=== PATIENT | female | born 1975 | race Caucasian/White ===

== ENCOUNTER 2018-04-08 17:31 | Emergency (ER) | payer MEDICAID ==
[2018-04-08 17:49] VITALS: BP 101/75
--- NOTE | 2018-04-08 17:59 | ED Physician Documentation ---
PD HPI FEMALE - Stated complaint Stated Complaint: FEM - Chief complaint Chief Complaint: UTI - History obtained from History obtained from: Patient - History of Present Illness Timing - onset: Yesterday (Urinary frequency and dysuria since yesterday without flank pain, fevers or nausea. She also feels like she has had ingrown hair in her groin for about a week.) Review of Systems Constitutional: reports: Reviewed and negative Cardiac: reports: Reviewed and negative Respiratory: reports: Reviewed and negative PD PAST MEDICAL HISTORY - Present Medications Home Medications: Ambulatory Orders Medication Instructions Recorded Confirmed Cephalexin [Keflex] 500 mg PO Q6H #28 capsule 04/08/18 - Allergies Allergies/Adverse Reactions: Allergies Allergy/AdvReac Type Severity Reaction Status Date / Time No Known Drug Allergies Allergy Verified 04/08/18 17:48 PD ED PE NORMAL - Vitals Vital signs reviewed: Yes - General General: Alert and oriented X 3, No acute distress - Abdomen Abdomen: Soft, Non tender - 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 CLOUDY Urine pH 6.0 Ur Specific [place] >=1.030 H Urine Protein TRACE Urine Glucose (UA) NEGATIVE Urine Ketones NEGATIVE Urine Occult Blood SMALL H Urine Nitrite NEGATIVE Urine Bilirubin NEGATIVE Urine Urobilinogen 0.2 (NORMAL) Ur Leukocyte Esterase TRACE H Urine RBC 11-25 H Urine WBC 6-10 H Ur Squamous Epith Cells MANY Squamous H Urine Bacteria Many H Ur Microscopic Review INDICATED Urine Culture Comments NOT INDICATED Urine HCG, Qual NEGATIVE PD MEDICAL DECISION MAKING - Sepsis Event Vital Signs: Vital Signs - 24 hr 04/08/18 17:45 Temperature 36.6 C Heart Rate 63 Respiratory 16 Rate Blood Pressure 101/75 O2 Saturation 99 Oxygen O2 Source Room air Departure - Departure Disposition: 01 Home, Self Care Clinical Impression: Cystitis, Ingrown hair Condition: Good Record reviewed to determine appropriate education?: Yes Instructions: ED UTI Cystitis Female Prescriptions: Cephalexin [Keflex] 500 mg PO Q6H #28 capsule Comments: We will culture your urine, the results should be done in 48-72 hours. If an antibiotic change is necessary we will call you. Return if worse in the meantime, especially if you develop increasing flank pain, fevers, or cannot keep down the medication.
[2018-04-08 18:08] LABS: BILIRUBIN,URINE NEGATIVE (NEGATIVE); GLUCOSE, URINE (UA) NEGATIVE (NEGATIVE); KETONES,URINE (UA) NEGATIVE (NEGATIVE); LEUKOCYTE ESTERASE, URINE TRACE (NEGATIVE); NITRITE,URINE NEGATIVE (NEGATIVE); OCCULT BLOOD,URINE SMALL (NEGATIVE); PROTEIN,URINE TRACE mg/dL (NEGATIVE); UROBILINOGEN,URINE 0.2 (NORMAL) E.U./dL (NORMAL)
[2018-04-08 18:11] LABS: CLARITY,URINE SL. CLOUDY (CLEAR); HCG UR QUAL NEGATIVE
[2018-04-08 18:15] LABS: BACTERIA,URINE Many /HPF (None Seen); SQUAMOUS EPITHELIAL CELL,UR MANY Squamous (<= Few)
[2018-04-08] MEDS ORDERED: CEPHALEXIN 250 MG Prepack 8 PO ONE (18:15)
== END 2018-04-08 18:29 | disposition home or self-care (01) ==
LOC: ED 17:31
DX: N30.90 Cystitis, unspecified without hematuria (principal); L73.8 Other specified follicular disorders
CPT/HCPCS: 81001; 81003; 81025; 87086; 87181; 99283

== ENCOUNTER 2018-06-09 07:11 | Emergency (ER) | payer MEDICAID ==
[2018-06-09] MEDS ORDERED: SODIUM CHLORIDE 0.9% 1,000 ML IV ONE (07:37)
--- NOTE | 2018-06-09 07:47 | ED Physician Documentation ---
History of Present Illness - Stated complaint Stated Complaint: CP/NUMBNESS IN LT ARM - Chief complaint Chief Complaint: Cardiac - Additonal information Additional information: 42-year-old female presents the emergency department with numerous complaints. The patient reports epigastric/lower chest pain which has been ongoing for quite some time. The symptoms started after eating a spicy espinoza. The patient reports pain that radiates into her left arm. The patient reports head pain. The patient denies sudden onset. The headache is described as mild. No motor or sensory changes. No neck stiffness. No fevers or chills. Symptoms are described as moderate. No specific relieving factors. Review of Systems Constitutional: denies: Fever, Fatigue Eyes: denies: Loss of vision Ears: denies: Ear pain Nose: denies: Congestion Throat: denies: Sore throat Cardiac: reports: Chest pain / pressure Respiratory: denies: Cough GI: denies: Abdominal Pain : denies: Dysuria Skin: denies: Rash Musculoskeletal: denies: Back pain Neurologic: reports: Headache. denies: Generalized weakness, Numbness, Difficulty speaking, Near syncope Immunocompromised: denies: Chemotherapy PD PAST MEDICAL HISTORY - Past Medical History GI: GERD, Colon polyps, C.difficile, Hemorrhoids Psych: Panic attacks, Post traumatic stress disorder Other Past Medical History: PTSD with tonic immobility. - Past Surgical History Past Surgical History: No - Present Medications Home Medications: Ambulatory Orders Medication Instructions Recorded Confirmed No Known Home Medications 06/09/18 06/09/18 - Allergies Allergies/Adverse Reactions: Allergies Allergy/AdvReac Type Severity Reaction Status Date / Time No Known Drug Allergies Allergy Verified 06/09/18 07:24 - Social History Does the pt smoke?: No Smoking Status: Never smoker Does the pt drink ETOH?: No - Immunizations Immunizations are current?: Yes PD ED PE NORMAL - General General: Alert and oriented X 3, No acute distress - HEENT HEENT: Atraumatic, PERRL, EOMI, Ears normal, Moist mucous membranes - Neck Neck: Supple, no meningeal sign - Cardiac Cardiac: RRR, Strong equal pulses - Respiratory Respiratory: No respiratory distress, Clear bilaterally - Abdomen Abdomen: Soft, Non tender, Non distended - Derm Derm: Normal color - Extremities Extremities: No deformity, No edema - Neuro Neuro: Alert and oriented X 3, Normal speech - Psych Psych: Normal mood Results - Vitals Vitals: Vital Signs - 24 hr 06/09/18 06/09/18 06/09/18 07:19 09:18 11:28 Temperature 36.8 C 37.1 C Heart Rate 70 47 L 60 Respiratory 20 13 14 Rate Blood Pressure 145/72 H 108/67 107/62 O2 Saturation 100 100 99 Oxygen O2 Source Room air - EKG (time done) 07:24 Rate: Rate (enter#) Rhythm: NSR [place]: Normal Intervals: Normal [place] QRS: Normal Ischemia: Normal ST segments - Labs Labs: Laboratory Tests 06/09/18 06/09/18 06/09/18 08:10 08:10 08:10 WBC 6.3 RBC 4.40 Hgb 13.5 Hct 39.3 MCV 89.3 MCH 30.7 MCHC 34.4 RDW 14.4 Plt Count 221 MPV 9.0 Neut # (Auto) 3.9 Lymph # (Auto) 1.4 L [place] # (Auto) 0.8 Eos # (Auto) 0.2 Baso # (Auto) 0.0 Absolute Nucleated RBC 0.00 Nucleated RBC % 0.0 Sodium 135 Potassium 3.9 Chloride 105 Carbon Dioxide 25 Anion Gap 5.0 L BUN 19 Creatinine 0.6 Estimated GFR (MDRD) 110 Glucose 109 H Calcium 8.5 Total Bilirubin 0.8 AST 18 ALT 17 Alkaline Phosphatase 53 Troponin I < 0.04 Total Protein 7.3 Albumin 4.2 Globulin 3.1 Albumin/Globulin Ratio 1.4 Lipase 41 06/09/18 10:15 WBC RBC Hgb Hct MCV MCH MCHC RDW Plt Count MPV Neut # (Auto) Lymph # (Auto) [place] # (Auto) Eos # (Auto) Baso # (Auto) Absolute Nucleated RBC Nucleated RBC % Sodium Potassium Chloride Carbon Dioxide Anion Gap BUN Creatinine Estimated GFR (MDRD) Glucose Calcium Total Bilirubin AST ALT Alkaline Phosphatase Troponin I < 0.04 Total Protein Albumin Globulin Albumin/Globulin Ratio Lipase - Rads (name of study) CT head Radiology: Final report received CXR Radiology: Final report received PD MEDICAL DECISION MAKING - ED course ED course: On reevaluation the patient is resting comfortably, the patient's symptoms have been ongoing for a period of time and the patient's workup today does not reveal any significant abnormality that would necessitate admission to the hospital or acute consultation. Per the heart score the patient appears low risk for further workup as an outpatient. I discussed with her the findings and plan and she understands and agrees. I discussed warning signs and recommended returning to the emergency department immediately for worsening or any concerns. Departure - Departure Disposition: 01 Home, Self Care Clinical Impression: Chest pain, Headache Condition: Good Instructions: Headaches Self Care, Headache Pain, ED Chest Pain [facility] Follow-Up: Kaya Zheng ND [Primary Care Provider] - Tomorrow (Please have your primary care physician arrange for an outpatient stress test and e chocardiogram to further evaluate your symptoms today.) Comments: Please return to the emergency department for worsening symptoms or any concerns. Discharge Date/Time: 06/09/18 11:29
--- NOTE | 2018-06-09 08:04 | XRAY Report ---
Reason: CP Procedure Date: 06/09/2018 Accession Number: [id number] / [id number] Procedure: XR - Chest 2 View X-Ray CPT Code: 48220 FULL RESULT: EXAM: CHEST RADIOGRAPHY EXAM DATE: 06/09/2018 07:48 AM. CLINICAL HISTORY: CP. COMPARISON: None. TECHNIQUE: 2 views. FINDINGS: Lungs/Pleura: No focal opacities evident. No pleural effusion. No pneumothorax. Normal volumes. Mediastinum: Heart and mediastinal contours are unremarkable. Other: None. IMPRESSION: Normal 2-view chest radiography for age and body habitus. RADIA
[2018-06-09 08:21] LABS: BASOPHILS % (AUTO) 0.8 %; EOSINOPHILS # (AUTO) 0.2 10^3/uL (0.0-0.7); EOSINOPHILS % (AUTO) 2.6 %; HGB - HEMOGLOBIN 13.5 g/dL (12.0-16.0); LYMPHOCYTES # (AUTO) 1.4 10^3/uL (1.5-3.5); LYMPHOCYTES % (AUTO) 22.6 %; MEAN CORPUSCULAR HEMOGLOBIN 30.7 pg (27.0-31.0); MEAN CORPUSCULAR HGB CONC 34.4 g/dL (32.0-36.0); MEAN CORPUSCULAR VOLUME 89.3 fL (81.0-99.0); MONOCYTES # (AUTO) 0.8 10^3/uL (0.0-1.0); MONOCYTES % (AUTO) 12.3 %; NEUTROPHILS # (AUTO) 3.9 10^3/uL (1.5-6.6); NEUTROPHILS % (AUTO) 61.7 %; PLT - PLATELET COUNT 221 10^3/uL (130-450); RED CELL DISTRIBUTION WIDTH 14.4 % (12.0-15.0); WHITE BLOOD COUNT 6.3 x10^3/uL (4.8-10.8)
[2018-06-09 08:33] LABS: ALBUMIN 4.2 g/dL (3.2-5.5); ALBUMIN/GLOBULIN RATIO 1.4 (1.0-2.2); BILIRUBIN,TOTAL 0.8 mg/dL (0.2-1.0); CALCIUM 8.5 mg/dL (8.5-10.3); CREATININE 0.6 mg/dL (0.4-1.0); TOTAL PROTEIN 7.3 g/dL (6.7-8.2)
[2018-06-09] MEDS ORDERED: KETOROLAC 60 MG/2 ML VIAL IVP STA (09:05)
--- NOTE | 2018-06-09 09:15 | CT Report ---
Reason: headache Procedure Date: 06/09/2018 Accession Number: [id number] / [id number] Procedure: CT - Head W/O CPT Code: FULL RESULT: EXAM: CT HEAD EXAM DATE: 06/09/2018 08:53 AM. CLINICAL HISTORY: Headache. COMPARISON: None. TECHNIQUE: Multiaxial CT images were obtained from the foramen magnum to the vertex. Reformats: Sagittal and coronal. IV contrast: None. In accordance with CT protocol optimization, one or more of the following dose reduction techniques were utilized for this exam: automated exposure control, adjustment of mA and/or KV based on patient size, or use of iterative reconstructive technique. FINDINGS: Parenchyma: No intraparenchymal hemorrhage. No evidence of mass, midline shift, or CT findings of infarction. Monreal-white differentiation is distinct. Extraaxial Spaces: Normal for age. No subdural or epidural collections identified. Ventricles: Normal in size and position. Sinuses and Orbits: There is a mucus retention cyst in the superomedial aspect of the right maxillary sinus. There is a small amount of mucus in an anterior left ethmoid air cell. Visualized portions of the remaining paranasal sinuses and mastoid air cells are clear. Bones: No evidence of fracture or calvarial defect. Other: None. IMPRESSION: No acute intracranial abnormality. RADIA
[2018-06-09 11:29] VITALS: BP 107/62
== END 2018-06-09 11:29 | disposition home or self-care (01) ==
LOC: ED 07:11
DX: R07.9 Chest pain, unspecified (principal); R51 Headache
CPT/HCPCS: 36415; 70450; 71046; 80053; 83690; 84484; 85025; 93005; 96361; 96374; 99283; 99284

== ENCOUNTER 2018-06-20 08:34 | Emergency (ER) | payer MEDICAID ==
[2018-06-20 09:04] VITALS: BP 111/60
[2018-06-20] MEDS ORDERED: DEXAMETHASONE 10 MG/ML VIAL PO STA (09:23)
--- NOTE | 2018-06-20 09:26 | ED Physician Documentation ---
History of Present Illness - Stated complaint Stated Complaint: ALLERGIC REACTION - Chief complaint Chief Complaint: General - History obtained from History obtained from: Patient - History of Present Illness Timing: How many days ago (3) - Additonal information Additional information: 42-year-old female had her teeth removed last week for dentures and she was on some Tylenol with codeine as well as amoxicillin and she is developed a lot of swelling in her mouth and then developed a rash on her entire body of some very small spots. She has been taken off of the amoxicillin and codeine and she is on Benadryl and continues to have some itching and this generalized rash. She does not have any difficulty breathing she has not any swelling or throat. She has not had allergic reaction previously. Review of Systems Constitutional: denies: Fever, Chills Eyes: denies: Decreased vision Ears: denies: Ear pain Nose: denies: Rhinorrhea / runny nose, Congestion Throat: reports: Dental pain / toothache. denies: Sore throat Cardiac: denies: Chest pain / pressure, Palpitations Respiratory: denies: Dyspnea, Cough GI: denies: Abdominal Pain, Abdominal Swelling, Nausea, Vomiting : denies: Dysuria, Frequency Skin: reports: Rash Musculoskeletal: denies: Neck pain, Back pain, Extremity pain PD PAST MEDICAL HISTORY - Past Medical History Past Medical History: Yes GI: GERD, Colon polyps, C.difficile, Hemorrhoids Psych: Panic attacks, Post traumatic stress disorder - Past Surgical History Past Surgical History: No - Present Medications Home Medications: Ambulatory Orders Medication Instructions Recorded Confirmed No Known Home Medications 06/09/18 06/09/18 - Allergies Allergies/Adverse Reactions: Allergies Allergy/AdvReac Type Severity Reaction Status Date / Time No Known Drug Allergies Allergy Verified 06/20/18 09:04 - Social History Does the pt smoke?: No Smoking Status: Never smoker Does the pt drink ETOH?: No - Immunizations Immunizations are current?: Yes PD ED PE NORMAL - Vitals Vital signs reviewed: Yes (normal ) - General General: Alert and oriented X 3, No acute distress, Well developed/nourished - HEENT HEENT: Atraumatic, PERRL, EOMI, Ears normal, Moist mucous membranes, Pharynx benign, Other (There are fresh sutures to the upper gum) - Neck Neck: Supple, no meningeal sign, No bony TTP - Cardiac Cardiac: RRR, No murmur - Respiratory Respiratory: No respiratory distress, Clear bilaterally - Abdomen Abdomen: Soft, Non tender - Back Back: No CVA TTP, No spinal TTP - Derm Derm: Normal color, Warm and dry, Other (There are pin point erythematous plaques over the entire body. 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 She is administered a single dose of dexamethasone and I have asked her to take Benadryl 25-50 mg every 6 hours for the next 2 days. Departure - Departure Disposition: 01 Home, Self Care Clinical Impression: Drug rash Condition: Stable Instructions: ED Drug React Allergic Follow-Up: Kaya Zheng ND [Primary Care Provider] - Comments: Do not take the amoxicillin or the codine and continue to take Benadryl 25-50 mg every 6 hours for the next 2 days. Expect the rash to supriya over the next day.
== END 2018-06-20 09:37 | disposition home or self-care (01) ==
LOC: ED 08:34
DX: R22.9 Localized swelling, mass and lump, unspecified (principal); R21 Rash and other nonspecific skin eruption; T36.0X5A Adverse effect of penicillins, initial encounter; T40.2X5A Adverse effect of other opioids, initial encounter
CPT/HCPCS: 99282

== ENCOUNTER 2018-12-30 01:55 | Outpatient (CLI) | payer MEDICAID | END 2018-12-30 01:56 | disposition critical access hospital (66) | LOC: EMS 01:55 | PROVIDERS: ATTEND Surgery | DX: R07.9 Chest pain, unspecified (principal) | CPT/HCPCS: A0425; A0429; A0999 ==

== ENCOUNTER 2018-12-30 02:12 | Emergency (ER) | payer MEDICAID ==
[2018-12-30 02:23] VITALS: BP 115/66
--- NOTE | 2018-12-30 02:41 | ED Physician Documentation ---
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 Symptoms lasted approximately 10 minutes and have resolved by time of ED arrival. Review of Systems Cardiac: reports: Chest pain / pressure, Palpitations. denies: Pedal edema Respiratory: denies: Dyspnea Musculoskeletal: reports: Neck pain Neurologic: reports: Headache PD PAST MEDICAL HISTORY - Past Medical History Past Medical History: Yes GI: GERD, Colon polyps, C.difficile, Hemorrhoids Psych: Panic attacks, Post traumatic stress disorder - Past Surgical History Past Surgical History: No - Present Medications Home Medications: Ambulatory Orders Medication Instructions Recorded Confirmed No Known Home Medications 06/09/18 06/09/18 - Allergies Allergies/Adverse Reactions: Allergies Allergy/AdvReac Type Severity Reaction Status Date / Time No Known Drug Allergies Allergy Verified 06/20/18 09:04 - Social History Does the pt smoke?: No Smoking Status: Never smoker Does the pt drink ETOH?: No Does the pt have substance abuse?: No Substance Use and Type: Marijuana - Immunizations Immunizations are current?: Yes - POLST Patient has POLST: No PD ED PE NORMAL - Vitals Vital signs reviewed: Yes - General General: Alert and oriented X 3, No acute distress (NAD at rest; appears uncomfortable when she sits forward for lung exam (auscultation)), Well developed/nourished - HEENT HEENT: PERRL, EOMI - Neck Neck: Supple, no meningeal sign - Cardiac Cardiac: RRR, No murmur - Respiratory Respiratory: No respiratory distress, Clear bilaterally - Extremities Extremities: No edema Results - Vitals Vitals: Vital Signs - 24 hr 12/30/18 12/30/18 02:17 02:22 Temperature 36.6 C Heart Rate 58 L 58 L Respiratory 16 16 Rate Blood Pressure 115/66 115/66 O2 Saturation 99 99 Oxygen O2 Source Room air - EKG (time done) No standard instances Rate: Rate (enter#) (57) Rhythm: Sinus bradycardia [place]: Normal Intervals: Normal [place] QRS: Normal Ischemia: Normal ST segments PD MEDICAL DECISION MAKING - ED course Complexity details: reviewed old records, considered differential, d/w patient ED course: After H+P performed, I d/w patient EKG (no acute findings) and I recommended blood tests to further investigate her palpitations and chest discomfort. Patient asks if her "head swelling" (per patient) could be causing her chest discomfort and palpitations. In trying to inquire about her head and neck pain, patient tells me she had an MRI yesterday in [place]. She says she has PTSD and Lyme disease. She seems to be unhappy with me when I explain that I don't immediately suspect a link between her headache and her chest discomfort, and she abruptly decides she wants no blood tests and wants to leave the ED. Departure - Departure Disposition: Against Medical Advice Clinical Impression: Chest pain, Palpitations Condition: Stable Discharge Date/Time: 12/30/18 03:04
== END 2018-12-30 03:04 | disposition left against medical advice (07) ==
LOC: EDUNIT# → ED 02:12
DX: R07.9 Chest pain, unspecified (principal); R00.2 Palpitations
CPT/HCPCS: 93005; 99283

== ENCOUNTER 2019-12-22 11:00 | Outpatient (CLI) | payer MEDICAID | END 2019-12-22 11:01 | disposition critical access hospital (66) | LOC: EMS 11:00 | PROVIDERS: ATTEND Surgery | DX: R19.7 Diarrhea, unspecified (principal); R51 Headache; R68.83 Chills (without fever); R42 Dizziness and giddiness | CPT/HCPCS: A0425; A0427 ==

== ENCOUNTER 2019-12-22 11:22 | Emergency (ER) | payer MEDICAID ==
[2019-12-22 11:49] LABS: BILIRUBIN,URINE NEGATIVE (NEGATIVE); GLUCOSE, URINE (UA) NEGATIVE (NEGATIVE); KETONES,URINE (UA) NEGATIVE (NEGATIVE); LEUKOCYTE ESTERASE, URINE NEGATIVE (NEGATIVE); NITRITE,URINE NEGATIVE (NEGATIVE); OCCULT BLOOD,URINE NEGATIVE (NEGATIVE); PROTEIN,URINE NEGATIVE (NEGATIVE); UROBILINOGEN,URINE 0.2 (NORMAL) E.U./dL (NORMAL)
[2019-12-22 11:50] LABS: CLARITY,URINE CLEAR (CLEAR); HCG UR QUAL NEGATIVE
[2019-12-22 11:55] LABS: BASOPHILS % (AUTO) 0.6 %; EOSINOPHILS # (AUTO) 0.1 10^3/uL (0.0-0.7); EOSINOPHILS % (AUTO) 1.1 %; HGB - HEMOGLOBIN 12.2 g/dL (12.0-16.0); LYMPHOCYTES # (AUTO) 1.1 10^3/uL (1.5-3.5); MEAN CORPUSCULAR HGB CONC 33.4 g/dL (32.0-36.0); MEAN CORPUSCULAR VOLUME 89.7 fL (81.0-99.0); MEAN PLATELET VOLUME 10.8 fL (7.9-10.8); MONOCYTES # (AUTO) 0.9 10^3/uL (0.0-1.0); MONOCYTES % (AUTO) 13.8 %; NEUTROPHILS # (AUTO) 4.1 10^3/uL (1.5-6.6); PLT - PLATELET COUNT 226 10^3/uL (130-450); RED BLOOD COUNT 4.07 10^6/uL (4.20-5.40); RED CELL DISTRIBUTION WIDTH 13.3 % (12.0-15.0); WHITE BLOOD COUNT 6.2 x10^3/uL (4.8-10.8)
[2019-12-22 12:08] LABS: ALBUMIN/GLOBULIN RATIO 1.5 (1.0-2.2); BILIRUBIN,TOTAL 0.7 mg/dL (0.2-1.0); CALCIUM 8.8 mg/dL (8.5-10.3); CREATININE 0.8 mg/dL (0.4-1.0); TOTAL PROTEIN 6.7 g/dL (6.7-8.2)
[2019-12-22] MEDS ORDERED: SODIUM CHLORIDE 0.9% 1,000 ML IV STA (12:54)
--- NOTE | 2019-12-22 13:08 | ED Physician Documentation ---
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 She states that her doctor has not prescribed any treatment for this but she has been on detoxifying supplements for the last 16 months. She states that she developed nausea last night and had watery diarrhea last night and this morning. She had abdominal cramping as well. Called 911. Given a dose of Zofran. Symptoms have now resolved and she feels much better. No fevers. No cough. No vomiting. No blood in the stool. No current abdominal pain. Review of Systems Constitutional: denies: Fever, Chills Respiratory: denies: Cough GI: denies: Nausea, Vomiting, Diarrhea Skin: denies: Rash Musculoskeletal: denies: Neck pain, Back pain Neurologic: denies: Headache PD PAST MEDICAL HISTORY - Past Medical History Past Medical History: Yes GI: GERD, Colon polyps, C.difficile, Hemorrhoids Psych: Panic attacks, Post traumatic stress disorder - Past Surgical History Past Surgical History: No - Present Medications Home Medications: Ambulatory Orders Medication Instructions Recorded Confirmed Ondansetron Odt [Zofran] 4 mg TL Q6H PRN #10 tablet 12/22/19 - Allergies Allergies/Adverse Reactions: Allergies Allergy/AdvReac Type Severity Reaction Status Date / Time No Known Drug Allergies Allergy Verified 06/20/18 09:04 - Social History Does the pt smoke?: No Smoking Status: Never smoker Does the pt drink ETOH?: No Does the pt have substance abuse?: No - Immunizations Immunizations are current?: Yes - POLST Patient has POLST: No PD ED PE NORMAL - Vitals Vital signs reviewed: Yes - General General: Alert and oriented X 3, No acute distress, Well developed/nourished - HEENT HEENT: Moist mucous membranes - Neck Neck: Supple, no meningeal sign - Cardiac Cardiac: RRR, Strong equal pulses - Respiratory Respiratory: No respiratory distress, Clear bilaterally - Abdomen Abdomen: Soft, Non tender, Non distended - Back Back: No CVA TTP - Derm Derm: Warm and dry, No rash - Extremities Extremities: No edema - Neuro Neuro: Alert and oriented X 3 - Psych Psych: Normal mood, Normal affect Results - Vitals Vitals: Vital Signs - 24 hr 12/22/19 11:25 Temperature 36.8 C Heart Rate 71 Respiratory 18 Rate Blood Pressure 129/109 H O2 Saturation 100 Oxygen O2 Source Room air - Labs Labs: Laboratory Tests 12/22/19 12/22/19 12/22/19 11:30 11:45 11:45 WBC 6.2 RBC 4.07 L Hgb 12.2 Hct 36.5 L MCV 89.7 MCH 30.0 MCHC 33.4 RDW 13.3 Plt Count 226 MPV 10.8 Neut # (Auto) 4.1 Lymph # (Auto) 1.1 L [place] # (Auto) 0.9 Eos # (Auto) 0.1 Baso # (Auto) 0.0 Absolute Nucleated RBC 0.00 Nucleated RBC % 0.0 Sodium 140 Potassium 3.2 L Chloride 103 Carbon Dioxide 28 Anion Gap 9.0 BUN 11 Creatinine 0.8 Estimated GFR (MDRD) 78 L Glucose 103 H Calcium 8.8 Total Bilirubin 0.7 AST 18 ALT 15 Alkaline Phosphatase 46 Total Protein 6.7 Albumin 4.0 Globulin 2.7 Albumin/Globulin Ratio 1.5 Lipase 37 Urine Color YELLOW Urine Clarity CLEAR Urine pH 8.0 H Ur Specific [place] 1.010 Urine Protein NEGATIVE Urine Glucose (UA) NEGATIVE Urine Ketones NEGATIVE Urine Occult Blood NEGATIVE Urine Nitrite NEGATIVE Urine Bilirubin NEGATIVE Urine Urobilinogen 0.2 (NORMAL) Ur Leukocyte Esterase NEGATIVE Ur Microscopic Review NOT INDICATED Urine Culture Comments NOT INDICATED Urine HCG, Qual NEGATIVE PD MEDICAL DECISION MAKING - ED course Complexity details: reviewed results, re-evaluated patient, considered differential, d/w patient ED course: Patient is well-appearing, nontoxic. Afebrile. Abdomen is soft, nontender nondistended. Tolerating p.o. without difficulty. No pain. No significant lab findings. We will place her on Zofran for home. Patient counseled regarding signs and symptoms for which I believe and urgent re-evaluation would be necessary. Patient with good understanding of and agreement to plan and is comfortable going home at this time This document was made in part using voice recognition software. While efforts are made to proofread this document, sound alike and grammatical errors may occur. Departure - Departure Clinical Impression: Diarrhea Qualifiers: Diarrhea type: unspecified type Qualified Code(s): R19.7 - Diarrhea, unspecified Condition: Good Instructions: ED Diarrhea Viral Follow-Up: CLARISSA CHARLES [Primary Care Provider] - Within 1 week Prescriptions: Ondansetron Odt [Zofran] 4 mg TL Q6H PRN #10 tablet PRN Reason: Nausea / Vomiting Comments: Return if you worsen. Follow up with your doctor for further care. This should improve over the next 2 to 3 days. Drink plenty of fluids.
[2019-12-22 13:32] VITALS: BP 101/67
== END 2019-12-22 13:42 | disposition home or self-care (01) ==
LOC: ED 11:22 → EDUNIT# 11:22 → ED 13:42
DX: R19.7 Diarrhea, unspecified (principal); R11.0 Nausea; Z87.19 Personal history of other diseases of the digestive system; Z86.2 Personal history of diseases of the blood and blood-forming organs and certain disorders involving the immune mechanism
CPT/HCPCS: 36415; 80053; 81001; 81003; 81025; 83690; 85025; 87086; 99282; 99283

== ENCOUNTER 2019-12-24 14:38 | Emergency (ER) | payer MEDICAID ==
--- NOTE | 2019-12-24 15:38 | ED Physician Documentation ---
PD HPI CHEST PAIN - Stated complaint Stated Complaint: ANXIETY - Chief complaint Chief Complaint: MHE - History obtained from History obtained from: Patient - History of Present Illness Timing - onset: How many days ago (2 days currently but has had similar at times in the past related to feeling anxious.) Timing - onset during: Light activity Timing - details: Gradual onset, Waxing and waning Quality: Aching, Sharp, Pain. No: Pressure, Tightness Location: Substernal Radiation: No: Back, Abdominal Improved by: Rest Worsened by: Palpation. No: Inspiration, Movement Associated symptoms: Nausea, Palpitations, Other (anxiety). No: Shortness of air, Feeling faint / dizzy Similar symptoms before: No diagnosis Recently seen: Emergency Dept (2 days ago had nausea and some loose stools, which improved with antidiarrheal. However, has had feeling of anxiety with pain lower sternal area.) Review of Systems Constitutional: denies: Fever, Chills Nose: denies: Rhinorrhea / runny nose, Congestion Throat: denies: Sore throat Cardiac: reports: Chest pain / pressure, Palpitations. denies: Pedal edema, Calf pain Respiratory: denies: Dyspnea, Cough GI: reports: Nausea, Constipation (started 2 days ago after Zofran for nausea.). denies: Vomiting, Diarrhea Skin: denies: Rash Neurologic: reports: Generalized weakness, Numbness (intermittent numbness diffusely.) Psychiatric: reports: Anxiety, Insomnia, Other (restless sleeping) PD PAST MEDICAL HISTORY - Past Medical History Cardiovascular: None Respiratory: None Neuro: None Endocrine/Autoimmune: Other (chronic Lyme disease and immune inflammation related to it. She sees Naturopathic provider about it. Takes supplements. ) GI: GERD, Colon polyps, C.difficile, Hemorrhoids Psych: Panic attacks, Post traumatic stress disorder - Past Surgical History Past Surgical History: No - Present Medications Home Medications: Ambulatory Orders Medication Instructions Recorded Confirmed Ondansetron Odt [Zofran] 4 mg TL Q6H PRN #10 tablet 12/22/19 Amitriptyline [Elavil] 25 mg PO HS #15 tablet 12/24/19 LORazepam [Ativan] 0.5 mg PO TID PRN #20 tablet 12/24/19 - Allergies Allergies/Adverse Reactions: Allergies Allergy/AdvReac Type Severity Reaction Status Date / Time No Known Drug Allergies Allergy Verified 12/24/19 14:43 - Social History Does the pt smoke?: No Smoking Status: Never smoker Does the pt drink ETOH?: No Does the pt have substance abuse?: No - Immunizations Immunizations are current?: Yes - POLST Patient has POLST: No PD ED PE NORMAL - Vitals Vital signs reviewed: Yes - General General: Alert and oriented X 3, No acute distress, Well developed/nourished - HEENT HEENT: Pharynx benign - Neck Neck: Supple, no meningeal sign, No adenopathy, Thyroid normal - Cardiac Cardiac: RRR, No murmur - Respiratory Respiratory: Clear bilaterally, Other (no noted chestwall tenderness) - Abdomen Abdomen: Normal bowel sounds, Soft, Non tender, Non distended - Derm Derm: Normal color, Warm and dry - Extremities Extremities: No tenderness to palpate, Normal ROM s pain, No edema, No calf tenderness / cord - Neuro Neuro: Alert and oriented X 3, ornamental iron erector 2-12 intact, No motor deficit, No sensory deficit, Normal speech Results - Vitals Vitals: Vital Signs - 24 hr 12/24/19 12/24/19 14:43 17:35 Temperature 36.6 C 36.9 C Heart Rate 80 70 Respiratory 14 100 H Rate Blood Pressure 118/50 L 118/52 L O2 Saturation 100 98 Oxygen O2 Source Room air - EKG (time done) 14:57 Rate: Rate (enter#) (65) Rhythm: NSR Sutton: Normal Intervals: Normal [place] QRS: Normal Ischemia: Normal ST segments. No: ST elevation c/w ischemia, ST depression - Labs Labs: Laboratory Tests 12/24/19 12/24/19 16:29 16:29 Sodium 140 Potassium 3.4 L Chloride 107 Carbon Dioxide 28 Anion Gap 5.0 L BUN 13 Creatinine 0.9 Estimated GFR (MDRD) 68 L Glucose 114 H Calcium 8.8 Magnesium 2.1 Total Bilirubin 0.8 AST 17 ALT 16 Alkaline Phosphatase 50 C-Reactive Protein < 1.0 Total Protein 7.0 Albumin 4.1 Globulin 2.9 Albumin/Globulin Ratio 1.4 Lipase 41 TSH 2.88 PD MEDICAL DECISION MAKING - ED course Complexity details: reviewed old records (from 2 days ago), reviewed results, re-evaluated patient (she felt better with ativan and Tylenol. Not anxious and no CP. Can use these short term until f/u with PCP. ), considered differential (she believes her chest discomfort is from anxiety. Lytes are normal except mildly low potassium. She has immune related dysfunction form chronic Lyme, but I don't think this is causing her chest discomfort. ), d/w patient Departure - Departure Disposition: 01 Home, Self Care Clinical Impression: Anxiety Chest pain Qualifiers: Chest pain type: precordial pain Qualified Code(s): R07.2 - Precordial pain Insomnia Qualifiers: Insomnia type: unspecified Qualified Code(s): G47.00 - Insomnia, unspecified Condition: Stable Record reviewed to determine appropriate education?: Yes Instructions: ED Chest Pain Atypical Unkn Cause Follow-Up: CLARISSA CHARLES [Primary Care Provider] - Prescriptions: Amitriptyline [Elavil] 25 mg PO HS #15 tablet LORazepam [Ativan] 0.5 mg PO TID PRN #20 tablet PRN Reason: Anxiety Comments: Stay well-hydrated. Add a high potassium foods for a week or so. Lorazepam 0.5 mg 2-3 times a day as needed for anxiety. Add Tylenol 650 mg every 4-6 hours if needed for pain. Amitriptyline 25 mg at night which is a very low dose of the medicine to try to help with sleep, restlessness, and general aches. See how these medicines do over the next week or 2 and be in contact with your primary care regarding continuation or change of them based on how well they help. Discharge Date/Time: 12/24/19 17:45
[2019-12-24] MEDS ORDERED: LORazepam 0.5 MG TABLET PO STA (16:10)
[2019-12-24] MEDS ORDERED: ACETAMINOPHEN 325 MG TABLET PO STA (16:27)
[2019-12-24 17:06] LABS: ALBUMIN 4.1 g/dL (3.2-5.5); ALBUMIN/GLOBULIN RATIO 1.4 (1.0-2.2); ALKALINE PHOSPHATASE 50 IU/L (42-121); ALT ALANINE AMINOTRANSFERASE 16 IU/L (10-60); AST ASPARTATE AMINOTRANSFERASE 17 IU/L (10-42); BILIRUBIN,TOTAL 0.8 mg/dL (0.2-1.0); BUN - BLOOD UREA NITROGEN 13 mg/dL (6-20); CALCIUM 8.8 mg/dL (8.5-10.3); CARBON DIOXIDE - CO2 28 mmol/L (21-32); CHLORIDE 107 mmol/L (101-111); CREATININE 0.9 mg/dL (0.4-1.0); CRP - C-REACTIVE PROTEIN < 1.0 mg/dL (0-1.0); GLUCOSE 114 mg/dL (70-100); LIPASE 41 U/L (22-51); MAGNESIUM 2.1 mg/dL (1.7-2.8); SODIUM 140 mmol/L (135-145)
[2019-12-24] MEDS ORDERED: DOCUSATE SODIUM 100 MG CAPSULE PO STA (17:24)
[2019-12-24 17:37] VITALS: BP 118/52
== END 2019-12-24 17:45 | disposition home or self-care (01) ==
LOC: ED 14:38
DX: F41.9 Anxiety disorder, unspecified (principal); R07.2 Precordial pain; G47.00 Insomnia, unspecified; A69.29 Other conditions associated with Lyme disease; D84.9 Immunodeficiency, unspecified
CPT/HCPCS: 36415; 80053; 83690; 83735; 84443; 86140; 93005; 99283; 99284; A9270

== ENCOUNTER 2020-06-15 08:52 | Emergency (ER) | payer MEDICAID ==
[2020-06-15 09:22] LABS: BILIRUBIN,URINE NEGATIVE (NEGATIVE); GLUCOSE, URINE (UA) NEGATIVE (NEGATIVE); KETONES,URINE (UA) NEGATIVE (NEGATIVE); LEUKOCYTE ESTERASE, URINE SMALL (NEGATIVE); NITRITE,URINE POSITIVE (NEGATIVE); OCCULT BLOOD,URINE MODERATE (NEGATIVE); PH,URINE 7.5 PH (5.0-7.5); PROTEIN,URINE NEGATIVE (NEGATIVE); UROBILINOGEN,URINE 0.2 (NORMAL) E.U./dL (NORMAL)
[2020-06-15 09:29] LABS: CLARITY,URINE CLEAR (CLEAR); HCG UR QUAL NEGATIVE
[2020-06-15 09:43] LABS: BACTERIA,URINE Few /HPF (None Seen); SQUAMOUS EPITHELIAL CELL,UR RARE Squamous (<= Few); WBC CLUMPS,URINE PRESENT
[2020-06-15] MEDS ORDERED: SULFAMETH/TRIMETH DS 800/160 MG TABLET PO STA (10:16)
--- NOTE | 2020-06-15 10:18 | ED Physician Documentation ---
History of Present Illness - Stated complaint Stated Complaint: FEMALE - Chief complaint Chief Complaint: UTI - History obtained from History obtained from: Patient - Additonal information Additional information: Pt comes to the emergency department complaining of 2 days of dysuria and frequency. She states that she has not had any fevers but did have some nausea yesterday. She has some mild lower abdominal cramping. No other complaints at this time. Review of Systems Ten Systems: 10 systems reviewed and negative Constitutional: reports: Reviewed and negative. denies: Fever, Chills Eyes: reports: Reviewed and negative Ears: reports: Reviewed and negative Nose: reports: Reviewed and negative Throat: reports: Reviewed and negative Cardiac: reports: Reviewed and negative Respiratory: reports: Reviewed and negative GI: reports: Abdominal Pain (Cramping) : reports: Dysuria, Frequency Skin: reports: Reviewed and negative Musculoskeletal: denies: Back pain Neurologic: reports: Reviewed and negative Psychiatric: reports: Reviewed and negative Endocrine: reports: Reviewed and negative Immunocompromised: reports: Reviewed and negative PD PAST MEDICAL HISTORY - Past Medical History Cardiovascular: None Respiratory: None Neuro: None Endocrine/Autoimmune: Other GI: GERD, Colon polyps, C.difficile, Hemorrhoids HEENT: None Psych: Panic attacks, Post traumatic stress disorder Derm: None - Past Surgical History 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 HEENT: Tonsil/Adenoidectomy - Present Medications Home Medications: Ambulatory Orders Medication Instructions Recorded Confirmed Ondansetron Odt [Zofran] 4 mg TL Q6H PRN #10 tablet 12/22/19 Amitriptyline [Elavil] 25 mg PO HS #15 tablet 12/24/19 LORazepam [Ativan] 0.5 mg PO TID PRN #20 tablet 12/24/19 Sulfamethox/Trimeth 800/160 1 each PO BID #14 tablet 06/15/20 [Bactrim Ds 800/160] - Allergies Allergies/Adverse Reactions: Allergies Allergy/AdvReac Type Severity Reaction Status Date / Time No Known Drug Allergies Allergy Verified 06/15/20 09:09 - Social History Does the pt smoke?: No Smoking Status: Never smoker Does the pt drink ETOH?: No Does the pt have substance abuse?: No - Immunizations Immunizations are current?: Yes - POLST Patient has POLST: No PD ED PE NORMAL - Vitals Vital signs reviewed: Yes - General General: Alert and oriented X 3, No acute distress - HEENT HEENT: Atraumatic, PERRL, EOMI, Moist mucous membranes - Neck Neck: Supple, no meningeal sign - Cardiac Cardiac: RRR, No murmur, Strong equal pulses - Respiratory Respiratory: No respiratory distress, Clear bilaterally - Abdomen Abdomen: Soft, Non tender, Non distended - Back Back: No CVA TTP - Derm Derm: Warm and dry - Extremities Extremities: No deformity, No edema - Neuro Neuro: Alert and oriented X 3 - Psych Psych: Normal mood, Normal affect Results - Vitals Vitals: Vital Signs - 24 hr 06/15/20 08:55 Temperature 36.9 C Heart Rate 68 Respiratory 18 Rate Blood Pressure 111/58 L O2 Saturation 100 Oxygen O2 Source Room air - Labs Labs: Laboratory Tests 06/15/20 09:12 Urine Color DARK YELLOW Urine Clarity CLEAR Urine pH 7.5 Ur Specific [place] 1.015 Urine Protein NEGATIVE Urine Glucose (UA) NEGATIVE Urine Ketones NEGATIVE Urine Occult Blood MODERATE H Urine Nitrite POSITIVE H Urine Bilirubin NEGATIVE Urine Urobilinogen 0.2 (NORMAL) Ur Leukocyte Esterase SMALL H Urine RBC 11-25 H Urine WBC 4-5 Urine WBC Clumps PRESENT Ur Squamous Epith Cells RARE Squamous Urine Bacteria Few Ur Microscopic Review INDICATED Urine Culture Comments INDICATED Urine HCG, Qual NEGATIVE PD MEDICAL DECISION MAKING - ED course Complexity details: reviewed results, re-evaluated patient, considered differential, d/w patient ED course: Pt was worked up with urinalysis, which was positive for infection. Started on Bactrim in the emergency department. We have discussed the need for fluids and symptomatic management at home. We have discussed the usual indications for return. Departure - Departure Disposition: 01 Home, Self Care Clinical Impression: UTI (urinary tract infection) Qualifiers: Urinary tract infection type: acute cystitis Hematuria presence: without hematuria Qualified Code(s): N30.00 - Acute cystitis without hematuria Condition: Stable Instructions: ED UTI Cystitis Female Prescriptions: Sulfamethox/Trimeth 800/160 [Bactrim Ds 800/160] 1 each PO BID #14 tablet
[2020-06-15 10:24] VITALS: BP 110/68
== END 2020-06-15 10:29 | disposition home or self-care (01) ==
LOC: ED 08:52
DX: N30.00 Acute cystitis without hematuria (principal)
CPT/HCPCS: 81001; 81025; 87077; 87086; 87181; 99283; 99284; A9270; 81003

== ENCOUNTER 2020-06-17 13:37 | Emergency (ER) | payer MEDICAID ==
[2020-06-17 14:25] VITALS: BP 141/74
[2020-06-17] MEDS ORDERED: FLUCONAZOLE 100 MG TABLET PO STA (14:37)
--- NOTE | 2020-06-17 14:40 | ED Physician Documentation ---
History of Present Illness - Stated complaint Stated Complaint: MED EVALUATION - Chief complaint Chief Complaint: General - History obtained from History obtained from: Patient - Additonal information Additional information: PT was seen here 2 days ago for UTI. She returns because she feels as though she is getting a vaginal yeast infection, which she says happens every time she takes abx. No other complaints at this time. Review of Systems Ten Systems: 10 systems reviewed and negative Constitutional: reports: Reviewed and negative Eyes: reports: Reviewed and negative Ears: reports: Reviewed and negative Nose: reports: Reviewed and negative Throat: reports: Reviewed and negative Cardiac: reports: Reviewed and negative Respiratory: reports: Reviewed and negative GI: reports: Reviewed and negative : reports: Other (vaginal itching/pain) Skin: reports: Reviewed and negative Musculoskeletal: reports: Reviewed and negative Neurologic: reports: Reviewed and negative Psychiatric: reports: Reviewed and negative Endocrine: reports: Reviewed and negative Immunocompromised: reports: Reviewed and negative PD PAST MEDICAL HISTORY - Past Medical History Cardiovascular: None Respiratory: None Neuro: None Endocrine/Autoimmune: Other GI: GERD, Colon polyps, C.difficile, Hemorrhoids HEENT: None Psych: Panic attacks, Post traumatic stress disorder Derm: None - Past Surgical History 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 HEENT: 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/Adenoidectomy - Present Medications Home Medications: Ambulatory Orders Medication Instructions Recorded Confirmed Ondansetron Odt [Zofran] 4 mg TL Q6H PRN #10 tablet 12/22/19 Amitriptyline [Elavil] 25 mg PO HS #15 tablet 12/24/19 LORazepam [Ativan] 0.5 mg PO TID PRN #20 tablet 12/24/19 Sulfamethox/Trimeth 800/160 1 each PO BID #14 tablet 06/15/20 [Bactrim Ds 800/160] Fluconazole [Diflucan] 200 mg PO ONCE #2 tablet 06/17/20 - Allergies Allergies/Adverse Reactions: Allergies Allergy/AdvReac Type Severity Reaction Status Date / Time No Known Drug Allergies Allergy Verified 06/17/20 14:25 - Social History Does the pt smoke?: No Smoking Status: Never smoker Does the pt drink ETOH?: No Does the pt have substance abuse?: No - Immunizations Immunizations are current?: Yes - POLST Patient has POLST: No PD ED PE NORMAL - Vitals Vital signs reviewed: Yes - General General: Alert and oriented X 3, No acute distress - HEENT HEENT: Atraumatic, PERRL, EOMI, Moist mucous membranes - Neck Neck: Supple, no meningeal sign - Respiratory Respiratory: No respiratory distress - Female Female : Deferred - Derm Derm: Normal color, Warm and dry, No rash - Extremities Extremities: No deformity - Neuro Neuro: Alert and oriented X 3 - Psych Psych: Normal mood, Normal affect Results - Vitals Vitals: Vital Signs - 24 hr 06/17/20 14:23 Temperature 36.7 C Heart Rate 88 Respiratory 14 Rate Blood Pressure 141/74 H O2 Saturation 98 Oxygen O2 Source Room air PD MEDICAL DECISION MAKING - ED course Complexity details: considered differential, d/w patient ED course: Pt given a dose of Diflucan in ED and an Rx for one more dose of the same. Stable for d/c. Departure - Departure Disposition: 01 Home, Self Care Clinical Impression: Yeast infection of the vagina Condition: Stable Instructions: ED Vaginal Infec Fungal Gisell Prescriptions: Fluconazole [Diflucan] 200 mg PO ONCE #2 tablet Discharge Date/Time: 06/17/20 15:00
== END 2020-06-17 15:00 | disposition home or self-care (01) ==
LOC: ED 13:37
DX: B37.3 Candidiasis of vulva and vagina (principal)
CPT/HCPCS: 99282; 99283; A9270

== ENCOUNTER 2020-07-30 10:19 | Emergency (ER) | payer MEDICAID ==
--- NOTE | 2020-07-30 10:23 | ED Physician Documentation ---
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 She denies worsening of pain with movement or any other specific worsening factors. She states the pain came on suddenly and out of nowhere and she has had several times where the pain is resolved completely and then has come back. She has tried lidocaine patches and she has been in to see a sports trainer and her doctor. Her pain was resolved this morning when she awoke and is again present. Review of Systems Constitutional: denies: Fever Eyes: denies: Decreased vision Ears: denies: Ear pain Nose: denies: Congestion Throat: denies: Sore throat Cardiac: denies: Chest pain / pressure, Palpitations Respiratory: denies: Dyspnea, Cough GI: denies: Abdominal Pain, Nausea, Vomiting : denies: Dysuria, Frequency Skin: denies: Rash, Lesions, Abrasion (s) Musculoskeletal: reports: Back pain. 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 HEENT: Tonsil/Adenoidectomy - Present Medications Home Medications: Ambulatory Orders Medication Instructions Recorded Confirmed Amitriptyline [Elavil] 50 mg PO HS 07/30/20 07/30/20 Cyclobenzaprine [Flexeril] 10 mg PO TID PRN #20 tablet 07/30/20 Hydrocodone/Acetaminophen [[place] 1 - 2 each PO Q6HR PRN #14 tablet 07/30/20 5-325 Tablet] - Allergies Allergies/Adverse Reactions: Allergies Allergy/AdvReac Type Severity Reaction Status Date / Time No Known Drug Allergies Allergy Verified 07/30/20 10:27 - Social History Does the pt smoke?: No Smoking Status: Never smoker Does the pt drink ETOH?: No Does the pt have substance abuse?: No - Immunizations Immunizations are current?: Yes - POLST Patient has POLST: No PD ED PE NORMAL - Vitals Vital signs reviewed: Yes (normal ) - General General: Alert and oriented X 3, No acute distress, Well developed/nourished - HEENT HEENT: Atraumatic, PERRL, EOMI - Neck Neck: Supple, no meningeal sign, No bony TTP - Cardiac Cardiac: RRR, No murmur - Respiratory Respiratory: No respiratory distress, Clear bilaterally - Abdomen Abdomen: Normal bowel sounds, Soft, Non tender, Non distended, No organomegaly - Back Back: No CVA TTP, No spinal TTP, Other (There is a lidocaine patch over the left kidney. ) - Derm Derm: Normal color, Warm and dry, No rash - Extremities Extremities: No deformity, No edema - Neuro Neuro: Alert and oriented X 3, trial consultant 2-12 intact, No motor deficit, No sensory deficit, Normal speech Eye Opening: Spontaneous Motor: Obeys Commands Verbal: Oriented GCS Score: 15 - Psych Psych: Normal mood, Normal affect Results - Vitals Vitals: Vital Signs - 24 hr 07/30/20 07/30/20 10:27 12:05 Temperature 36.4 C L 36.9 C Heart Rate 69 66 Respiratory 16 18 Rate Blood Pressure 105/58 L 95/61 O2 Saturation 98 100 Oxygen O2 Source Room air - Labs Labs: Laboratory Tests 07/30/20 07/30/20 07/30/20 10:37 10:54 10:54 WBC 5.8 RBC 4.28 Hgb 13.0 Hct 39.6 MCV 92.5 MCH 30.4 MCHC 32.8 RDW 13.0 Plt Count 279 MPV 10.3 Neut # (Auto) 3.6 Lymph # (Auto) 1.2 L Phillips # (Auto) 0.6 Eos # (Auto) 0.3 Baso # (Auto) 0.0 Absolute Nucleated RBC 0.00 Nucleated RBC % 0.0 Sodium 138 Potassium 4.3 Chloride 105 Carbon Dioxide 25 Anion Gap 8.0 BUN 17 Creatinine 1.0 Estimated GFR (MDRD) 60 L Glucose 74 Calcium 8.7 Total Bilirubin 0.6 AST 24 ALT 16 Alkaline Phosphatase 59 Total Protein 7.3 Albumin 4.3 Globulin 3.0 Albumin/Globulin Ratio 1.4 Lipase 50 Urine Color YELLOW Urine Clarity HAZY Urine pH 6.5 Ur Specific [place] 1.020 Urine Protein NEGATIVE Urine Glucose (UA) NEGATIVE Urine Ketones NEGATIVE Urine Occult Blood MODERATE H Urine Nitrite NEGATIVE Urine Bilirubin NEGATIVE Urine Urobilinogen 0.2 (NORMAL) Ur Leukocyte Esterase NEGATIVE Urine RBC 0-5 Urine WBC 0-3 Ur Squamous Epith Cells MOD Squamous H Urine Bacteria Few Ur Microscopic Review INDICATED Urine Culture Comments NOT INDICATED Urine HCG, Qual NEGATIVE - Rads (name of study) CT ab/pel Radiology: Prelim report reviewed (Impression: 1. No renal stones or hydronephrosis. Normal appearing bilateral ureters and urinary bladder. No bowel obstruction or abnormal bowel wall thickening. No free fluid or free air. No evidence of acute appendicitis or diverticulitis.), EMP read indepedently, See rad report Procedures - Bedside sono Bedside sono by EMP: With use of bedside ultrasound the left kidney is imaged it is sonographically nontender there is no perinephric fluid and there is no significant hydronephrosis PD MEDICAL DECISION MAKING - ED course Complexity details: reviewed results, re-evaluated patient, considered differential, d/w patient ED course: 45-year-old female with back pain that is behaving atypically and that she has no modifying factors and the area is nontender and she has no pain with movement. An IV is started she is given saline and Toradol and a CT abdomen pelvis is undertaken. CT is without evidence of intra-abdominal pathology and the patient is treated for musculoskeletal pain. She is given dexamethasone and we will place her on a short course of pain medication a muscle relaxant. Departure - Departure Disposition: 01 Home, Self Care Clinical Impression: Lumbar strain Qualifiers: Encounter type: initial encounter Qualified Code(s): S39.012A - Strain of muscle, fascia and tendon of lower back, initial encounter Condition: Stable Instructions: ED Sprain Strain Lumbar Follow-Up: CLARISSA CHARLES [Primary Care Provider] - Prescriptions: Hydrocodone/Acetaminophen [[place] 5-325 Tablet] 1 - 2 each PO Q6HR PRN #14 tablet PRN Reason: Pain Cyclobenzaprine [Flexeril] 10 mg PO TID PRN #20 tablet PRN Reason: Spasms
[2020-07-30 10:57] LABS: BILIRUBIN,URINE NEGATIVE (NEGATIVE); GLUCOSE, URINE (UA) NEGATIVE (NEGATIVE); KETONES,URINE (UA) NEGATIVE (NEGATIVE); LEUKOCYTE ESTERASE, URINE NEGATIVE (NEGATIVE); NITRITE,URINE NEGATIVE (NEGATIVE); OCCULT BLOOD,URINE MODERATE (NEGATIVE); PH,URINE 6.5 PH (5.0-7.5); PROTEIN,URINE NEGATIVE (NEGATIVE); UROBILINOGEN,URINE 0.2 (NORMAL) E.U./dL (NORMAL)
[2020-07-30] MEDS ORDERED: KETOROLAC 30 MG/ML VIAL IVP STA (10:58)
[2020-07-30] MEDS ORDERED: SODIUM CHLORIDE 0.9% 1,000 ML IV STA (10:58)
[2020-07-30 11:00] LABS: CLARITY,URINE HAZY (CLEAR); HCG UR QUAL NEGATIVE
[2020-07-30 11:01] LABS: BASOPHILS % (AUTO) 0.7 %; EOSINOPHILS # (AUTO) 0.3 10^3/uL (0.0-0.7); EOSINOPHILS % (AUTO) 4.8 %; LYMPHOCYTES # (AUTO) 1.2 10^3/uL (1.5-3.5); LYMPHOCYTES % (AUTO) 21.3 %; MEAN CORPUSCULAR HEMOGLOBIN 30.4 pg (27.0-31.0); MEAN CORPUSCULAR HGB CONC 32.8 g/dL (32.0-36.0); MEAN CORPUSCULAR VOLUME 92.5 fL (81.0-99.0); MEAN PLATELET VOLUME 10.3 fL (7.9-10.8); MONOCYTES # (AUTO) 0.6 10^3/uL (0.0-1.0); MONOCYTES % (AUTO) 10.6 %; NEUTROPHILS # (AUTO) 3.6 10^3/uL (1.5-6.6); NEUTROPHILS % (AUTO) 61.7 %; PLT - PLATELET COUNT 279 10^3/uL (130-450); RED BLOOD COUNT 4.28 10^6/uL (4.20-5.40); WHITE BLOOD COUNT 5.8 x10^3/uL (4.8-10.8)
[2020-07-30 11:07] LABS: BACTERIA,URINE Few /HPF (None Seen); RBC,URINE 0-5 /HPF (0-5); SQUAMOUS EPITHELIAL CELL,UR MOD Squamous (<= Few)
--- NOTE | 2020-07-30 11:23 | CT Report ---
PROCEDURE: Abdomen/Pelvis WO INDICATIONS: L flank pain TECHNIQUE: Noncontrast 5 mm thick sections acquired from the diaphragms to the symphysis. 5 mm coronal and sagi ttal reformats were then performed. For radiation dose reduction, the following was used: automated exposure control, adjustment of mA and/or kV according to patient size. COMPARISON: None. FINDINGS: Image quality: Excellent. ABDOMEN: Lung bases: There is mild bibasilar dependent atelectasis. No pleural effusion or pneumothorax.. Hea rt size is normal. Solid organs: Liver and spleen are normal in size. Gallbladder is within normal limits Pancreas is normal in contours. No adrenal nodules. Kidneys are normal in size, without hydronephrosis or neph rolithiasis. Bilateral ureters are within normal limits. Peritoneum and bowel: Unenhanced bowel loops demonstrate normal wall thickness and caliber. No free fluid or air. Nodes and vessels: No retroperitoneal or mesenteric adenopathy by size criteria. Aorta and inferior vena cava are normal in caliber. Miscellaneous: No ventral hernias. PELVIS: Genitourinary: Bladder wall thickness is normal. No gross abnormality is seen in uterus and bilater al adnexa. Miscellaneous: No inguinal hernias or adenopathy. Bones: No suspicious bony lesions. No vertebral body compression fractures. IMPRESSION: 1. No renal stones or hydronephrosis. Normal-appearing bilateral ureters and urinary bladder. 2. No bowel obstruction or abnormal bowel wall thickening. No free fluid or free air. No evidence of acute appendicitis or diverticulitis. Reviewed by: Leif Summers MD on 07/30/2020 11:21 AM [facility] Approved by: Leif Summers MD on 07/30/2020 11:21 AM PST Station ID: [id number]
[2020-07-30 11:28] LABS: ALBUMIN 4.3 g/dL (3.2-5.5); ALBUMIN/GLOBULIN RATIO 1.4 (1.0-2.2); BILIRUBIN,TOTAL 0.6 mg/dL (0.2-1.0); CALCIUM 8.7 mg/dL (8.5-10.3); TOTAL PROTEIN 7.3 g/dL (6.7-8.2)
[2020-07-30] MEDS ORDERED: DEXAMETHASONE 10 MG/ML VIAL IVP STA (11:28)
[2020-07-30 12:06] VITALS: BP 95/61
== END 2020-07-30 12:41 | disposition home or self-care (01) ==
LOC: ED 10:19
DX: S39.012A Strain of muscle, fascia and tendon of lower back, initial encounter (principal); X50.0XXA Overexertion from strenuous movement or load, initial encounter; Y93.89 Activity, other specified; Y99.0 Civilian activity done for income or pay
CPT/HCPCS: 36415; 74176; 80053; 81001; 81003; 81025; 83690; 85025; 87086; 96374; 96375; 99284

== ENCOUNTER 2021-10-08 08:21 | Outpatient (CLI) | payer OTHER, MEDICAID ==
--- NOTE | 2021-10-16 06:41 | Mammography Report ---
BILATERAL DIGITAL SCREENING MAMMOGRAM 3D/2D: 10/08/2021 CLINICAL: Routine screening. No prior exams were available for comparison. The tissue of both breasts is heterogeneously dense. T his may lower the sensitivity of mammography. There is a possible irregular equal density asymmetry with an indistinct margin in the left breast po sterior depth lateral region seen on the craniocaudal view only. No other significant masses, calcifications, or other findings are seen in either breast. IMPRESSION: INCOMPLETE: NEEDS ADDITIONAL IMAGING EVALUATION The possible irregular equal density asymmetry in the left breast is indeterminate. Additional views with possible ultrasound are recommended. This exam was interpreted at Station ID: [id number]. NOTE: For mammograms, a report in lay terms will be sent to the patient. Approximately 15% of breast malignancies will not be visualized mammographically. In the management of a palpable breast mass, a negative mammogram must not discourage biopsy of a clinically suspicious lesion. Electronically Signed By: Ada mitchell/nelson:10/14/2021 12:14:30 ACR BI-RADS Category 0: Incomplete [id number] PARENCHYMAL PATTERN: (D) - The breast(s) demonstrate(s) heterogeneously dense fibroglandular parenchy ma. BI-RADS CATEGORY: (0) - 0 Mammo and [place] [id number] Immediate follow-up LATERALITY: (B)
== END 2021-10-08 08:22 | disposition home or self-care (01) ==
LOC: DI.N 08:21
PROVIDERS: ATTEND Internal Medicine
DX: Z12.31 Encounter for screening mammogram for malignant neoplasm of breast (principal); R92.8 Other abnormal and inconclusive findings on diagnostic imaging of breast